=== PATIENT | male | born 1955 | race Caucasian/White ===

== ENCOUNTER → 2016-08-12 | Outpatient (REF) | payer BC ==
[2016-08-12 10:17] LABS: ALBUMIN 4.1 g/dL (3.4-5.0); ANION GAP 13.9 MEQ/L (3-15); CALCULATED IONIZED CALCIUM 4.1 mg/dL (3.8-4.6); TOTAL PROTEIN 7.2 g/dL (6.4-8.5)
== END ==
LOC: LAB 09:53
PROVIDERS: ATTEND Family Medicine
DX: Z00.00 Encounter for general adult medical examination without abnormal findings (principal); Z13.6 Encounter for screening for cardiovascular disorders
CPT/HCPCS: 80053; 80061

== ENCOUNTER → 2016-11-02 | Outpatient (CLI) | payer BC | LOC: LAB 16:32 | PROVIDERS: ATTEND Urology | DX: R97.20 Elevated prostate specific antigen [PSA] (principal) | CPT/HCPCS: 36415; 84153 ==